=== PATIENT | male | born 1935 | race Caucasian/White ===

== ENCOUNTER → 2017-01-05 | Outpatient (CLI) | payer OTHER | LOC: HYPER 07:11 | DX: L89.513 Pressure ulcer of right ankle, stage 3 (principal); E11.51 Type 2 diabetes mellitus with diabetic peripheral angiopathy without gangrene; I25.2 Old myocardial infarction; B35.1 Tinea unguium ==

== ENCOUNTER → 2017-01-19 | Outpatient (CLI) | payer OTHER | LOC: HYPER 07:05 | DX: L89.513 Pressure ulcer of right ankle, stage 3 (principal); E11.622 Type 2 diabetes mellitus with other skin ulcer; I25.2 Old myocardial infarction; E11.51 Type 2 diabetes mellitus with diabetic peripheral angiopathy without gangrene; Z95.1 Presence of aortocoronary bypass graft; Z98.49 Cataract extraction status, unspecified eye; Z79.4 Long term (current) use of insulin ==

== ENCOUNTER → 2017-02-03 | Outpatient (CLI) | payer OTHER | LOC: HYPER 07:26 | DX: E11.621 Type 2 diabetes mellitus with foot ulcer (principal); L89.513 Pressure ulcer of right ankle, stage 3; S91.302A Unspecified open wound, left foot, initial encounter; E11.51 Type 2 diabetes mellitus with diabetic peripheral angiopathy without gangrene; I25.2 Old myocardial infarction; B35.1 Tinea unguium; Z79.4 Long term (current) use of insulin; X58.XXXA Exposure to other specified factors, initial encounter; Y93.89 Activity, other specified; Y92.89 Other specified places as the place of occurrence of the external cause; Y99.8 Other external cause status ==